=== PATIENT | female | born 1960 | race Caucasian/White ===

== ENCOUNTER → 2019-05-20 | Outpatient (CLI) | payer BC ==
--- NOTE | 2019-05-23 10:14 | PE ---
EXAMINATION TYPE: PET CT fusion skull to thigh DATE OF EXAM: 05/20/2019 CLINICAL HISTORY: 59-year-old female C21.1, initial staging colorectal cancer. Anal cancer. Patient p resented with rectovaginal fistula. Status post biopsy and diverting colostomy on 03/11/2019. TECHNIQUE: Following the intravenous administration of 12.2 mCi of F-18 FDG at the right antecubita l fossa, whole body images are performed from the skull base to the midthigh. Images are reviewed on the computer in the coronal, axial, and sagittal planes. Reconstructed rotating images are created on independent workstation and reviewed on the computer. A localization and attenuation correction CT is performed in conjunction with the PET scan. Glucose level: 94 mg/dL COMPARISON: CT chest 04/08/2019 and abdomen pelvis 12/29/2018 FINDINGS: PET: Physiologic FDG uptake within the neck. Right anterior chest wall injection port is present with internal jugular vein access and a couple ar eas of focal mild uptake along the course of the injection port catheter, likely postsurgical/reactiv e changes. 2.1 cm nodular cutaneous lesion left paramedian anterior upper chest shows intense focal uptake, max SUV 6.1. Otherwise, physiologic FDG uptake within the chest. Average liver SUV 2.5. Some mild/moderate focal uptake at the splenic flexure of the colon likely physiologic as there is no CT correlate, max SUV 3.1. There is a left lower quadrant diverting sigmoid colostomy. The colon located within the subcutaneous adipose layer just deep to the colostomy site shows intense focal uptake, max SUV 8.4. Additional focal intense uptake at the level of the anus, max SUV 13.9. Otherwise, physiologic FDG uptake within the abdomen and pelvis. ATTENUATION CORRECTION CT: Lobulated mucosal thickening floor of the right greater than left maxillary sinuses. Prior resection changes along the right mastoid process. Fatty atrophy of the right submandibular gland. No cervical lymphadenopathy. Heart upper limits of normal in size with trace anterior basilar pericardial fluid. Upper descending thoracic aorta is ectatic at 3.3 cm. Bovine configuration to the aortic arch. No thoracic lymphadenop athy by CT size criteria. No consolidation or pleural effusion. Inferior splenule. Tiny hiatal hernia. No dilated small bowel, free fluid, or free air. No mesenteric or retroperitoneal lymphadenopathy. No significant stool burden. No pericolonic inflammatory change. Normal appendix. Uterus surgically absent. No abnormal fluid collection in the pelvis or pelvic lymphadenopathy. Bones: Mild degenerative changes at the hips. Scattered degenerative disc disease throughout the lowe r thoracic and lumbar spine. No osseous destructive process. IMPRESSION: 1. Intense focal uptake at the level of the anus, max SUV 13.9 may correspond to the site of patient' s vaginal fistula. Correlate for underlying neoplasm here. 2. Left lower quadrant proximal sigmoid diverting colostomy. The colon located within the subcutaneou s adipose just deep to the colostomy opening shows intense focal uptake, maximum SUV 8.4. This could represent nonspecific inflammation but should be correlated as to the location of the patient's biops y-proven carcinoma to exclude neoplasm here. 3. Intense uptake involving a 2.1 cm cutaneous lesion along the left anterior upper chest. Direct vis ualization and evaluation is recommended. Infected/inflamed sebaceous cyst as well as a cutaneous carolyn plasm are both differential considerations.
== END | disposition home or self-care (01) ==
LOC: RADPETMAIN 07:41
PROVIDERS: ATTEND Internal Medicine Hematology & Oncology
DX: Z93.3 Colostomy status (principal); L72.3 Sebaceous cyst; C21.1 Malignant neoplasm of anal canal
CPT/HCPCS: 78815; A9552

== ENCOUNTER → 2019-08-27 | Outpatient (CLI) | payer BC ==
--- NOTE | 2019-08-28 23:41 | CT ---
EXAMINATION TYPE: CT ChestAbdPelvis w con DATE OF EXAM: 08/27/2019 COMPARISON: PET/CT 05/20/2019 HISTORY: 59-year-old female follow up anal cancer TECHNIQUE: Contiguous axial scanning of the chest, abdomen, and pelvis performed with IV Contrast, pa tient injected with 100 mL of Isovue 300. Delayed images through the kidneys were obtained. Coronal/s agittal reconstructions performed. CT DLP: 1113.5 mGycm Automated exposure control for dose reduction was used. FINDINGS: CHEST: Nonspecific 9 mm hypodense nodule left lobe of the thyroid gland. This region did not show any hyperm etabolism on the recent PET/CT. Right anterior chest wall injection port with catheter tip at the right atrium. Heart normal size with small pericardial effusion measuring up to 7 mm thick at that base of the hear t. Aorta normal caliber colon configuration to the aortic arch. No thoracic lymphadenopathy by CT size criteria. Minimal residual cutaneous thickening measuring 6 mm along the left paramedian anterior upper chest a t the site of previous hypermetabolic nodule. Clinical correlation recommended. Some strandy atelectasis in the lower lungs. No consolidation or pleural effusion. Trace left effusio n and some atelectasis is noted. ABDOMEN: Small hiatal hernia. No focal liver lesion or biliary ductal dilatation. Portal venous system is patent. Adrenal glands, kidneys, spleen with tiny posterior splenule, pancreas appear within normal limits. No dilated small bowel, free fluid, or free air. Some nonspecific thickening overlying the right common iliac bifurcation, axial image 92 is of unclea r etiology but was present on the prior 05/20/2019 PET/CT without any hypermetabolism suggesting a peterson ign etiology. No mesenteric or retroperitoneal lymphadenopathy is identified. Diverting left lower quadrant proximal sigmoid colostomy redemonstrated. There is increasing soft tissue stranding and probable edema deep to the stoma within the subcutaneou s adipose of unclear etiology. Refer to axial image 90. No significant stool burden. Normal appendix. PELVIS: New presacral edema. Anasarca type change along the mid to lower abdomen and pelvis. Mild circumferen tial bladder wall thickening with nondependent intraluminal bladder air. Uterus surgically absent. Ne ither ovary clearly seen. No pelvic lymphadenopathy. BONES: Degenerative disc disease L5-S1. Facet arthropathy lower lumbar spine. No osseous destructive process . IMPRESSION: 1. THE PREVIOUS HYPERMETABOLIC CUTANEOUS LESION ALONG THE LEFT PARAMEDIAN ANTERIOR UPPER CHEST SHOWS ONLY MINIMAL 6 MM OF RESIDUAL THICKENING NOW. CLINICALLY CORRELATE FOR ANY INTERVAL TREATMENT/INTERVE NTION. 2. REDEMONSTRATED DIVERTING LEFT LOWER QUADRANT SIGMOID COLOSTOMY. THERE IS INCREASING SOFT TISSUE DE NSITY, STRANDING, AND EDEMA WITHIN AND ALONG THE INFERIOR ASPECT OF THE PULL-THROUGH. CORRELATE FOR A [place] INFECTIOUS OR INFLAMMATORY SIGNS/SYMPTOMS. CONTINUED FOLLOW-UP RECOMMENDED TO EXCLUDE INFILTRATING NEOPLASM, AXIAL IMAGE 90. THIS IS CONSIDERED LESS LIKELY. 3. NEW PRESACRAL EDEMA COULD RELATE TO THE MILD GENERALIZED ANASARCA CHANGE OR POSTTREATMENT CHANGE. THERE IS ALSO A NEW TRACE LEFT EFFUSION. 4. NO NEW METASTATIC DISEASE IDENTIFIED. 5. NONDEPENDENT AIR WITHIN THE BLADDER LUMEN. QUERY ANY RECENT INSTRUMENTATION.
== END | disposition home or self-care (01) ==
LOC: RADCTMAIN 13:31
PROVIDERS: ATTEND Internal Medicine Hematology & Oncology
DX: R22.2 Localized swelling, mass and lump, trunk (principal); M79.89 Other specified soft tissue disorders; Z93.3 Colostomy status; C21.1 Malignant neoplasm of anal canal
CPT/HCPCS: 71260; 74177; Q9967

== ENCOUNTER → 2019-11-24 | Outpatient (CLI) | payer BC ==
--- NOTE | 2019-11-24 15:53 | CT ---
EXAMINATION TYPE: CT ChestAbdPelvis w con DATE OF EXAM: 11/24/2019 COMPARISON: 08/27/2019 and 05/20/2019 HISTORY: 59-year-old female Anal cancer, suspect mets TECHNIQUE: Contiguous axial scanning of the chest, abdomen, and pelvis performed with IV Contrast, pa tient injected with 100 mL of Isovue 300. Delayed images through the kidneys were obtained. Coronal/s agittal reconstructions performed. CT DLP: 1172.5 mGycm Automated exposure control for dose reduction was used. FINDINGS: CHEST: Heart is upper limits of normal in size with new small basilar pericardial effusion. Bovine configuration to the aortic arch. Ectatic upper descending thoracic aorta measuring up to 3.3 cm. Right anterior chest wall injection port with catheter tip at the upper atrium. No thoracic lymphadenopathy by CT size criteria. Increasing small left pleural effusion. Strandy left basilar atelectasis. Minimal biapical pleural pa renchymal scarring. No consolidation. ABDOMEN: No focal liver lesion or biliary ductal dilatation. Portal venous system is patent. Gallbladder, adrenal glands,, right kidney, spleen with a inferior splenule, and pancreas appear with in normal limits. Mild left-sided pelviectasis but no obstructing calculus or calyceal dilatation to suggest troy hydr onephrosis. No dilated small bowel or free air. No mesenteric or retroperitoneal lymphadenopathy. New mild pelvic ascites tracking down into the adnexa and increased presacral edema. Worsening anasar ca change. Redemonstrated proximal sigmoid the diverting colostomy at the left lower quadrant. Resolution of the previous inflammatory changes along the inferior aspect of the pull-through. Normal appendix. PELVIS: The previous intraluminal air within the bladder has resolved. Uterus surgically absent. Neither ovar y clearly visualized. Again, mild ascites tracking into the pelvis and increasing presacral edema and anasarca change. No pelvic lymphadenopathy seen. BONES: Mild degenerative change at both hips. Facet arthropathy lower lumbar spine. Mild to moderate degener ative disc disease midthoracic spine. No osseous destructive process seen. IMPRESSION: 1. WORSENING THIRD SPACING/ANASARCA WITH INCREASING SMALL LEFT EFFUSION, NEW MILD PELVIC ASCITES, AND INCREASING PRESACRAL EDEMA. 2. DIVERTING LEFT LOWER QUADRANT SIGMOID COLOSTOMY WITH RESOLUTION OF THE PREVIOUSLY SEEN INFLAMMATIO N. 3. NO METASTATIC DISEASE IS IDENTIFIED..
== END | disposition home or self-care (01) ==
LOC: RADCTMAIN 12:33
PROVIDERS: ATTEND Internal Medicine Hematology & Oncology
DX: Z03.89 Encounter for observation for other suspected diseases and conditions ruled out (principal); C21.1 Malignant neoplasm of anal canal; K94.09 Other complications of colostomy; R18.8 Other ascites
CPT/HCPCS: 71260; 74177; Q9967

== ENCOUNTER → 2020-02-23 | Outpatient (CLI) | payer BC ==
--- NOTE | 2020-02-24 08:29 | CT ---
EXAMINATION TYPE: CT ChestAbdPelvis w con DATE OF EXAM: 02/23/2020 COMPARISON: Most recent CT November 24, 2019 and older CTs. PET/CT May 20, 2019 HISTORY: Anal CA f/u CT DLP: 811.3 mGycm. Automated Exposure Control for Dose Reduction was Utilized. CONTRAST: CT scan of the thorax, abdomen and pelvis is performed with oral and with IV Contrast, patient inject ed with 100 mL of Isovue 300. FINDINGS: LUNGS: The lungs remain grossly clear, there is no concerning parenchymal mass or nodule identified. There is no pleural effusion or pneumothorax seen currently. The tracheobronchial tree is patent. MEDIASTINUM: There are no greater than 1 cm hilar or mediastinal lymph nodes. No cardiomegaly or pe ricardial effusion is seen. OTHER: Stable right internal jugular Mediport catheter. Tiny focal skin lesion medial left breast axi al image 26 corresponding to area of hypermetabolic uptake PET/CT is slightly more prominent from rec ent CT, similar in appearance to the April 08, 2019 CT. LIVER/GB: No significant abnormality is appreciated. PANCREAS: No significant abnormality is seen. SPLEEN: Small splenule inferior posterior to spleen coronal image 64 redemonstrated. ADRENALS: No significant abnormality is seen. KIDNEYS: Extrarenal pelvis on left redemonstrated. No calyceal dilatation. Symmetric cortical medulla ry uptake and excretion again seen. BOWEL: Oral contrast does not reach level of left-sided ostomy. No suspicious small or large bowel di latation. Distal sigmoid rectal stump redemonstrated terminating with sutures in the left sided ostom y. Stable increased soft tissue in the presacral space axial image 105 unchanged from most recent casandra dy. No new suspicious asymmetric tissue or nodularity at this level. GENITAL ORGANS: Uterus surgically absent or markedly atrophic. Scattered right-sided pelvic phlebolit hs. Foci of air in the remnant cervix axial image 120 redemonstrated. LYMPH NODES: No greater than 1cm abdominal or pelvic lymph nodes are appreciated. OSSEOUS STRUCTURES: Slight scoliotic curvature with moderate multilevel spurring. Multilevel facet ar thropathy lower lumbar spine. OTHER: No significant additional abnormality is seen. IMPRESSION: Subcentimeter soft tissue lesion anterior left mid breast or thorax is more prominent fro m recent CT and should be correlated clinically after hypermetabolic uptake on PET/CT, appears simila r to the CT chest April 08, 2019 study. Otherwise no new mass or adenopathy identified to suggest metastatic neoplasm or neoplastic progression. Stable findings in the anal and presacral region from most recent CT.
== END | disposition home or self-care (01) ==
LOC: RADCTMAIN 13:48
PROVIDERS: ATTEND Internal Medicine Hematology & Oncology
DX: M79.89 Other specified soft tissue disorders (principal); C21.1 Malignant neoplasm of anal canal
CPT/HCPCS: 71260; 74177; Q9967

== ENCOUNTER → 2020-06-13 | Outpatient (CLI) | payer BC ==
--- NOTE | 2020-06-13 14:37 | CT ---
EXAMINATION TYPE: CT ChestAbdPelvis w con DATE OF EXAM: 06/13/2020 COMPARISON: CT February 23, 2020 and older studies HISTORY: H/O anal CA CT DLP: 929.9 mGycm. Automated Exposure Control for Dose Reduction was Utilized. CONTRAST: CT scan of the thorax, abdomen and pelvis is performed with oral and with IV Contrast, patient inject ed with 100ml mL of Isovue 300. FINDINGS: LUNGS: The lungs remain grossly clear, there is no concerning new or enlarging greater than 4 mm pare nchymal mass or nodule identified. Stable micronodule anterior right upper lobe axial image 25. Ther e is no pleural effusion or pneumothorax seen currently. The tracheobronchial tree is patent. MEDIASTINUM: There are no new greater than 1 cm hilar or mediastinal lymph nodes. No cardiomegaly o r pericardial effusion is seen. OTHER: Interval removal of right sided Mediport catheter. Tiny focal skin lesion medial left breast p rior study not clearly seen on current study. Stable near 1 cm lower pole left thyroid nodule image 3 0. LIVER/GB: No significant abnormality is appreciated. PANCREAS: No significant abnormality is seen. SPLEEN: Small splenule inferior posterior to spleen coronal image 64 is redemonstrated. ADRENALS: No significant abnormality is seen. KIDNEYS: Extrarenal pelvis on left redemonstrated. No calyceal dilatation. Symmetric cortical medulla ry uptake and excretion again seen. BOWEL: Interval ostomy reversal. Oral contrast does not reach level of colon on current study. Surgic al sutures colonic loop in the central upper pelvis coronal image 33 current study. Mild focal fecal prominence at this level. There is additional metallic density anterior right upper pelvis image 93 c urrent study presumed surgical clip. No suspicious small or large bowel dilatation overall. Mild to m oderate wall thickening in the sigmoid rectal colon with mild adjacent fat stranding. Stable mild inc reased soft tissue in the presacral space axial image 105 for reference unchanged from most recent st udy. No new suspicious asymmetric tissue or nodularity at this level. GENITAL ORGANS: Uterus surgically absent . A few right-sided pelvic phleboliths. LYMPH NODES: No new greater than 1cm abdominal or pelvic lymph nodes are appreciated. Prominent but s ubcentimeter lymph node right lower quadrant axial image 89 suspected, in close proximity to bowel lo op just below this. Short-term follow-up at this level advised. OSSEOUS STRUCTURES: Slight scoliotic curvature with moderate multilevel spurring. Multilevel facet ar thropathy lower lumbar spine. OTHER: Moderate mixed plaque in the aorta extends into branch vessels. IMPRESSION: Interval colostomy reversal. Stable findings in the anal and presacral region from most r ecent CT suggests posttreatment change. Possible new mild distal uncomplicated acute colitis, correla te clinically. No definitive new mass or adenopathy to suggest recurrent or persistent metastatic carolyn plasm.
== END | disposition home or self-care (01) ==
LOC: RADCTMAIN 12:06
PROVIDERS: ATTEND Internal Medicine Hematology & Oncology
DX: C21.1 Malignant neoplasm of anal canal (principal)
CPT/HCPCS: 71260; 74177; Q9967

== ENCOUNTER → 2020-09-13 | Outpatient (CLI) | payer BC ==
--- NOTE | 2020-09-14 17:01 | CT ---
EXAMINATION TYPE: CT ChestAbdPelvis wo/w con DATE OF EXAM: 09/13/2020 INDICATION: Follow up anal cancer COMPARISON: 06/13/2020 CT DLP: 1759.1 mGycm CONTRAST: Performed with Oral Contrast and without and with IV Contrast, patient injected with 100 mL of Isovue 300. TECHNIQUE: Axial images at 5 mm thick sections. Reconstructed images in the coronal plane. Delayed images through the kidneys. FINDINGS: CT CHEST: Small cystlike areas within the anterior left thyroid lobe. No suspicious lung nodules or focal infiltrates are present. No enlarged mediastinal or hilar adenopathy is evident. The ascending aorta diameter at the level of the main pulmonary artery is 3.6 cm. The main pulmonary artery diameter at the bifurcation is 2.8 cm. Minimal coronary artery calcification is present. Very minimal pericardial effusion may be present. CT ABDOMEN: Liver: Normal Spleen: Normal Pancreas: Normal Adrenal glands: The adrenal glands are normal. Gallbladder: Normal Kidneys: No masses are evident. No hydronephrosis is present. No cysts are present. No renal stone s are evident. Aorta: Vascular calcification is within the aorta. Inferior vena cava: Normal. CT PELVIS: Presacral space is normal. Perirectal fat appears normal. Loops of bowel within the abdomen and pelvis are normal. Postsurgical changes are evident within the pelvis. There are loops of bowel which are incompletely distended or lack oral contrast limiting t heir evaluation. Appendix: Normal as visualized. Urinary bladder: Normal. Genitourinary structures: Uterus and ovaries are not identified. Osseous structures: No suspicious lytic or sclerotic lesions. IMPRESSIONS: 1. Postsurgical changes. 2. No suspicious change to suggest recurrent or metastatic neoplasm.
== END | disposition home or self-care (01) ==
LOC: RADCTMAIN 10:15
PROVIDERS: ATTEND Internal Medicine Hematology & Oncology
DX: C21.1 Malignant neoplasm of anal canal (principal); K60.3 Anal fistula; I10 Essential (primary) hypertension; Z71.3 Dietary counseling and surveillance
CPT/HCPCS: 71270; 74178; Q9967

== ENCOUNTER → 2020-12-07 | Outpatient (CLI) | payer BC ==
--- NOTE | 2020-12-09 16:24 | CT ---
EXAMINATION TYPE: CT ChestAbdPelvis w con DATE OF EXAM: 12/07/2020 COMPARISON: 09/13/2020, 06/13/2020, 02/23/2020 HISTORY: 60-year-old female C21.1 Malignant neoplasm of anus TECHNIQUE: Contiguous axial scanning of the chest, abdomen, and pelvis performed with IV Contrast, pa tient injected with 100 mL of Isovue 300. Delayed images through the kidneys were obtained. Coronal/s agittal reconstructions performed. CT DLP: 1519 mGycm Automated exposure control for dose reduction was used. FINDINGS: CHEST: Heart normal size with trace pericardial fluid. There is bovine configuration to the aortic arch. Upper descending thoracic aorta remains ectatic at 3.1 cm. 7 mm hypodense nodule left lobe of the thyroid gland remains unchanged. No thoracic lymphadenopathy by CT size criteria. Minimal biapical pleural-parenchymal scarring. No consolidation or pleural effusion. ABDOMEN: Tiny 4 mm hypodensity anterior right liver lobe too small for accurate CT characterization, unchanged , likely tiny cyst. No biliary ductal dilatation. Portal venous system is patent. Gallbladder, adrenal glands, spleen with posterior inferior splenule, and pancreas within normal limi ts. Bilateral extrarenal pelves redemonstrated. Stranding and scarring along the anterior left lower quadrant subcutaneous adipose layer relating to prior colostomy. No dilated small bowel, free fluid, or free air. No mesenteric or retroperitoneal lymphadenopathy. Normal appendix. Oral contrast has progressed into the left upper quadrant. Postsurgical change of partial left hemico lectomy. The left side of the colon is again noted to have been brought towards the midline. At the l evel of the anastomosis in the anterior midline upper pelvis, the colon is patulous measuring up to 6 .0 cm, similar to prior exam. We do note some focal soft tissue thickening which appears increased, extending posteriorly from here measuring 3.4 x 1.5 cm. Reference axial image 93. We suspect this to represent combination of a post menopausal ovary and possibly some adjacent scar tissue. Attention on follow-up. PELVIS: Bladder is urine distended. Mild circumferential bladder wall thickening. Uterus surgically absent. P resacral edema/soft tissue thickening appears similar. Otherwise, no pelvic lymphadenopathy seen. BONES: Sclerosis of the sacrum may be slightly increased. Vertically oriented lucency along the left side of the sacrum, axial image 90 through 97. Mild anterior endplate spondylosis lower thoracic spine and l umbar spine. IMPRESSION: 1. REDEMONSTRATED PRIOR PARTIAL LEFT HEMICOLECTOMY AND COLOSTOMY REVERSAL. AT THE LEVEL OF THE ANASTO MOSIS, THERE IS SOME 3.4 X 1.5 CM SOFT TISSUE THICKENING EXTENDING POSTERIORLY FROM THE RIGHT LATERAL MARGIN THAT APPEARS INCREASED. SUSPECT THE SOFT TISSUE TO REPRESENT A COMBINATION OF A POSTMENOPAUSA L OVARY AND POSSIBLY SOME ADJACENT SCAR TISSUE. ATTENTION ON FOLLOW-UP TO EXCLUDE THE POSSIBILITY OF RECURRENCE. 2. OTHERWISE, NO EVIDENCE FOR METASTATIC DISEASE. 3. MILD CIRCUMFERENTIAL BLADDER WALL THICKENING COULD REPRESENT CYSTITIS OR POSTTREATMENT CHANGE. SIM ILARLY, PRESACRAL SOFT TISSUE THICKENING/EDEMA IS ALSO UNCHANGED. 4. SACRAL SCLEROSIS SLIGHTLY INCREASED, CORRELATE FOR PRIOR RADIATION THERAPY CHANGE. THERE APPEARS T O BE INTERVAL DEVELOPMENT OF A VERTICAL LEFT SACRAL ALAR INSUFFICIENCY FRACTURE.
== END | disposition home or self-care (01) ==
LOC: RADCTMAIN 11:06
PROVIDERS: ATTEND Internal Medicine Hematology & Oncology
DX: C21.1 Malignant neoplasm of anal canal (principal); K60.3 Anal fistula; I10 Essential (primary) hypertension; Z71.3 Dietary counseling and surveillance
CPT/HCPCS: 71260; 74177; Q9967

== ENCOUNTER 2023-09-26 10:26 | Inpatient (IN) | payer MEDICARE ==
[~2023-09-26 10:26] MED LIST: ASPIRIN 325 MG TAB ONE; DILTIAZEM 125 MG/25 ML VIAL IV ONE; DILTIAZEM 5 MG/ML 5 ML VIAL ONE; SODIUM CHLORIDE 0.9% 1,000 ML BAG ONE; SODIUM CHLORIDE 0.9% 100 ML BAG IV ONE; SODIUM CHLORIDE 0.9% 500 ML BAG ONE; TICAGRELOR 90 MG TAB ONE
[2023-09-26] MEDS ORDERED: ATORVASTATIN 80 MG TAB ONE (21:08)
[2023-09-26] MEDS ORDERED: SODIUM CHLORIDE 0.9% 100 ML BAG IV ONE (23:59)
[2023-09-26] MEDS ORDERED: SODIUM CHLORIDE 0.9% 1,000 ML BAG ONE (23:59)
[2023-09-26] MEDS ORDERED: DILTIAZEM 100 MG VIAL.PORT IV ONE (23:59)
[2023-09-27] MEDS ORDERED: ATORVASTATIN 80 MG TAB ONE (08:55)
[2023-09-27] MEDS ORDERED: ASPIRIN 81 MG ONE (08:55)
[2023-09-27] MEDS ORDERED: FAMOTIDINE 20 MG TAB ONE (08:55)
[2023-09-27] MEDS ORDERED: TICAGRELOR 90 MG TAB ONE (08:56)
[2023-09-27] MEDS ORDERED: DILTIAZEM ORAL 30 MG TAB ONE (16:49)
[2023-09-28] MEDS ORDERED: ASPIRIN 81 MG ONE (09:16)
[2023-09-28] MEDS ORDERED: TICAGRELOR 90 MG TAB ONE ×2 (09:17→20:43)
[2023-09-28] MEDS ORDERED: FAMOTIDINE 20 MG TAB ONE ×2 (09:17→20:42)
[2023-09-28] MEDS ORDERED: APIXABAN 5 MG TAB ONE ×2 (09:17→20:42)
[2023-09-28] MEDS ORDERED: METOPROLOL TARTRATE 50 MG TAB ONE ×2 (13:49→20:42)
[2023-09-28] MEDS ORDERED: DILTIAZEM ORAL 60 MG TAB ONE ×2 (14:34→20:42)
[2023-09-28] MEDS ORDERED: ATORVASTATIN 80 MG TAB ONE (20:42)
[2023-09-29] MEDS ORDERED: DILTIAZEM ORAL 60 MG TAB ONE ×3 (06:14→19:48)
[2023-09-29] MEDS ORDERED: METOPROLOL TARTRATE 50 MG TAB ONE (09:46)
[2023-09-29] MEDS ORDERED: APIXABAN 5 MG TAB ONE ×2 (09:46→19:48)
[2023-09-29] MEDS ORDERED: FAMOTIDINE 20 MG TAB ONE ×2 (09:46→19:48)
[2023-09-29] MEDS ORDERED: ASPIRIN 81 MG ONE (09:46)
[2023-09-29] MEDS ORDERED: TICAGRELOR 90 MG TAB ONE ×2 (09:46→19:49)
[2023-09-29] MEDS ORDERED: METOPROLOL TARTRATE 12.5 MG TAB ONE (19:48)
[2023-09-29] MEDS ORDERED: ATORVASTATIN 80 MG TAB ONE (19:48)
[2023-09-30] MEDS ORDERED: DILTIAZEM ORAL 60 MG TAB ONE ×2 (05:50→13:06)
[2023-09-30] MEDS ORDERED: FAMOTIDINE 20 MG TAB ONE (09:07)
[2023-09-30] MEDS ORDERED: ASPIRIN 81 MG ONE (09:07)
[2023-09-30] MEDS ORDERED: APIXABAN 5 MG TAB ONE (09:08)
[2023-09-30] MEDS ORDERED: METOPROLOL TARTRATE 12.5 MG TAB ONE (09:08)
[2023-09-30] MEDS ORDERED: TICAGRELOR 90 MG TAB ONE (09:08)
--- NOTE | 2023-10-19 17:11 | CT ---
Patient Nannette Wolfe ID [id number] Order # EXAMINATION TYPE: CT brain wo con for TPA DATE OF EXAM: 09/26/2023 COMPARISON: No comparison available on downtime PACS. INDICATION: Aphasic DLP: 1603.6 mGycm, Automated exposure control for dose reduction was used. CONTRAST: 65 mL Isovue-370 CT of the brain is performed utilizing 3 mm thick sections through the posterior fossa and 3 mm thick sections through the remaining calvarium. Study is performed within 24 hours of arrival to the hosp [facility]. No abnormal hyperdensity is present to suggest an acute intracranial hemorrhage. No mass lesion is evident. No acute infarcts are evident. Ventricles and sulci are appropriate for the patient age. Paranasal sinuses and mastoid air cells within the [id number] are clear. IMPRESSION: 1. No acute intracranial process. Follow up MRI can be performed as clinically indicated. EXAMINATION TYPE: CT brain wo con for TPA DATE OF EXAM: 09/26/2023 HISTORY: Aphasic COMPARISON: No comparison available on downtime PACS. CT DLP: 1603.6 mGycm. Automated Exposure Control for Dose Reduction was Utilized. TECHNIQUE: CTA scan of the neck is performed with IV Contrast, patient injected with 65 mL of Isovue 370, axial images are obtained, coronal and sagittal reformatted images are reviewed. Three-D recons tructed images are created on an independent workstation and reviewed. Source images are reviewed. FINDINGS: Carotid/Vascular Structures: There is a 3 vessel arch. May be a common origin of the left common wise tid artery right subclavian. Common carotid arteries bifurcate into internal and external carotid arteries without significant valeria w limiting stenosis. Vertebral arteries are codominant. Internal carotid arteries and vertebral arteries are patent to the skull base. Cervical of [place]: Vertebral basilar system appears normal. Posterior cerebral vasculature is unrema rkable. Internal carotid arteries bifurcate normally into A1 and M1 segments. A2 segments are normal. The anterior communicating artery is patent. The right posterior communicating artery is patent. The left posterior communicating artery is patent. IMPRESSION: 1. No flow-limiting stenosis bilateral carotid bifurcations. 2. Normal [place] NASCET criteria was used in interpretation of this exam?
--- NOTE | 2023-10-20 11:12 | MR ---
Patient: Nannette Wolfe Ordering Physician: Unknown, Unknown ID: [id number] Phone, Pager: Tami ne: N/A Pager: N/A : 1960 Age/Gender: 63Y, F Primary Location: N/A Procedure: MR brain wo/w c on Study Date: 09/28/2023 2:34:51 PM EXAMINATION TYPE: MR brain wo con DATE OF EXAM: 09/28/2023 4:36 PM CLINICAL INDICATION: Confusion COMPARISON: 09/26/2023. TECHNIQUE: Multi planar, multi sequence imaging was performed through the brain including: T1, T2, In version recovery, susceptibility weighted imaging and gradient echo imaging and Diffusion weighted im aging. The patient was then given intravenous contrast and multi planar, T1 fat-saturation images wer e obtained. IV Contrast: None FINDINGS: Restricted diffusion within the left temporal and left parietal lobes compatible with acute /subacute CVA. The may-white junctions, ventricular system, basal cisterns appear unremarkable. Diffusion-weighted imaging shows no evidence of restricted diffusion to suggest acute/subacute infarct. Intracranial ar terial flow voids are maintained. Midline structures show no abnormality. Scattered foci of high T2 s ignal intensity are seen within the periventricular white matter. The susceptibility weighted images do not reveal any evidence for micro-hemorrhage. The bone marrow signal is within normal limits. Paranasal sinuses and mastoid air cells: No significant paranasal sinus disease. Visualized orbits: Orbital contents are intact. IMPRESSION: 1. Left temporal/parietal lobe acute/subacute CVA. 2. Nonspecific white matter changes, likely related to small vessel ischemic disease.
--- NOTE | 2023-10-27 11:08 | CA ---
Transthoracic Echo Report Name: Nannette Wolfe Age: 63 Gender: F : 1960 Exam Date: 09/29/2023 08:08 Exam Location: [facility] Ht (in): 64 Wt (lb): 195 Ordering Physician: Attending/Referring Phys: Pharmacy Order Entry Technician Renetta Hollins RDCS Procedure CPT: Indications: Cardiac Hx: Technical Quality: Good Contrast 1: Total Dose (mL): Contrast 2: Total Dose (mL): MEASUREMENTS (Male / Female) Normal Values 2D ECHO LV Diastolic Diameter PLAX 5.3 cm 4.2 - 5.9 / 3.9 - 5.3 cm LV Systolic Diameter PLAX 3.2 cm IVS Diastolic Thickness 1.0 cm 0.6 - 1.0 / 0.6 - 0.9 cm LVPW Diastolic Thickness 1.1 cm 0.6 - 1.0 / 0.6 - 0.9 cm LV Relative Wall Thickness 0.4 RV Internal Dim ED PLAX 3.1 cm LA Systolic Diameter LX 4.4 cm 3.0 - 4.0 / 2.7 - 3.8 cm LV Diastolic Volume MOD 4C 78.4 cm??? LV Systolic Volume MOD 4C 48.2 cm??? LV Ejection Fraction MOD 4C 38.4 % LV Cardiac Index MOD 4C 1185.2 cm???/min???m??? LV Diastolic Length 4C 7.3 cm LV Systolic Length 4C 6.6 cm LV Diastolic Volume MOD 2C 84.4 cm??? LV Systolic Volume MOD 2C 41.7 cm??? LV Ejection Fraction MOD 2C 50.6 % LV Cardiac Index MOD 2C 1679.3 cm???/min???m??? LV Diastolic Length 2C 6.6 cm LV Systolic Length 2C 5.5 cm M-MODE Aortic Root Diameter MM 2.8 cm AV Cusp Separation MM 1.9 cm DOPPLER AV Peak Velocity 125.9 cm/s AV Peak Gradient 6.3 mmHg MV Area PHT 4.6 cm??? TR Peak Velocity 214.7 cm/s TR Peak Gradient 18.4 mmHg Right Ventricular Systolic Press 29.2 mmHg FINDINGS Left Ventricle Left ventricular ejection fraction is estimated at 40-45 %. Left ventricular cavity size normal. Moderate global hypokinesis Right Ventricle Normal right ventricular size and function. Right ventricular systolic pressure within normal limits. Right Atrium Normal right atrial size. No right atrial thrombus or mass seen. Left Atrium Moderately increased left atrial diameter. No left atrial thrombus or mass present. Mitral Valve Structurally normal mitral valve. Moderate mitral regurgitation. Aortic Valve Trileaflet aortic valve. No aortic valve stenosis or regurgitation. Tricuspid Valve Structurally normal tricuspid valve. Moderate severe tricuspid regurgitation. Pulmonic Valve Structurally normal pulmonic valve. Mild pulmonic regurgitation. Pericardium No pericardial or pleural effusion. Aorta Normal size aortic root and proximal ascending aorta. CONCLUSIONS 1. Moderate global hypokinesis of the left ventricle 2. Moderate mitral regurgitation 3. Moderate tricuspid regurgitation with no evidence of pulmonary hypertension Previewed by: Dr. Tiarra Cleaning MD (Electronically Signed) Final Date: 29 September 2023 09:32
--- NOTE | 2023-10-28 06:18 | XR ---
Patient Nannette Wolfe ID [id number] Order # EXAMINATION TYPE: XR chest 2V DATE OF EXAM: 09/26/2023 COMPARISON: No comparison available on downtime PACS. INDICATION: Dysphagia, acute mental status change TECHNIQUE: Frontal and lateral views of the chest are obtained. FINDINGS: The heart size is normal. The pulmonary vasculature is normal. The lungs are clear. IMPRESSION: 1. No acute pulmonary process.
== END 2023-09-30 16:51 | disposition home or self-care (01) | DRG 308 ==
LOC: DISRECOVER 10:26
PROVIDERS: ADMIT Hospitalist; ATTEND Hospitalist
DX: I48.0 Paroxysmal atrial fibrillation (principal); I63.89 Other cerebral infarction; R47.01 Aphasia; I34.2 Nonrheumatic mitral (valve) stenosis; F10.90 Alcohol use, unspecified, uncomplicated; H91.91 Unspecified hearing loss, right ear; R29.701 NIHSS score 1; Y90.0 Blood alcohol level of less than 20 mg/100 ml; Z85.9 Personal history of malignant neoplasm, unspecified
CPT/HCPCS: 70450; 70496; 70498; 70551; 71046; 80061; 93005; 93306; 96361; 96374; 99291

== ENCOUNTER 2023-11-17 08:50 | Day surgery (SDC) | payer MEDICARE ==
[~2023-11-17 08:50] MED LIST changes: -ASPIRIN 325 MG TAB ONE; -DILTIAZEM 125 MG/25 ML VIAL IV ONE; -DILTIAZEM 5 MG/ML 5 ML VIAL ONE; -SODIUM CHLORIDE 0.9% 1,000 ML BAG ONE; +SODIUM CHLORIDE 0.9% 1,000 ML IV SCH; -SODIUM CHLORIDE 0.9% 100 ML BAG IV ONE; -SODIUM CHLORIDE 0.9% 500 ML BAG ONE; -TICAGRELOR 90 MG TAB ONE
[2023-11-17] MEDS: IV FLUID CONTINUATION 1,000 ML IV ONE (09:35)
[2023-11-17] MEDS: SODIUM CHLORIDE 0.9% 500 ML DEHP FREE BAG IV STA (09:39)
[2023-11-17 10:00] LABS: ALT 24 U/L (4-34); AST 26 U/L (14-36); African American GFR (CKD) 84 (>60 ml/min/1.73 sqM); Albumin 4.5 g/dL (3.5-5.0); Alkaline Phosphatase 72 U/L (38-126); Anion Gap 9 mmol/L; Blood Urea Nitrogen 15 mg/dL (7-17); Calcium 9.9 mg/dL (8.4-10.2); Carbon Dioxide 25 mmol/L (22-30); Chloride 107 mmol/L (98-107); Glucose 116 mg/dL (74-99); HCT 35.1 % (34.0-46.0); MCH 34.7 pg (25.0-35.0); MCHC 34.1 g/dL (31.0-37.0); MCV 101.6 fL (80.0-100.0); Mean Platelet Volume 7.9; Non-African American GFR(CKD) 72 (>60 ml/min/1.73 sqM); Platelet Count 249 k/uL (150-450); Potassium 4.4 mmol/L (3.5-5.1); RBC 3.45 m/uL (3.80-5.40); RDW 12.4 % (11.5-15.5); Sodium 141 mmol/L (137-145); Total Bilirubin 1.3 mg/dL (0.2-1.3); Total Protein 6.8 g/dL (6.3-8.2); WBC 4.4 k/uL (3.8-10.6)
[2023-11-17] MEDS ORDERED: PROPOFOL 10 MG/ML 20 ML VIAL IV ONE (10:05)
[2023-11-17] MEDS ORDERED: ePHEDrine 50 MG/ML 1 ML VIAL ONE (10:05)
[2023-11-17] MEDS ORDERED: LIDOCAINE 1% INJ 10MG/ML (20 ML MDV) ONE (10:05)
[2023-11-17 10:06] LABS: NT-Pro-B-Type Natriuretic Pept 2410 pg/mL
[2023-11-17] MEDS ORDERED: BENZOCAINE SPRAY 1 CAN MUCOUS MEM PRN (10:25)
[2023-11-17 10:30] VITALS: TEMP 97.6
[2023-11-17 11:53] VITALS: RESP 18
[2023-11-17 12:03] VITALS: BP 121/69; PULSE 66
[2023-11-17 16:52] LABS: Chol/HDL Ratio 2.19 Ratio; LDL Cholesterol,Calculated 52.3 mg/dL (0.0-131.0)
--- NOTE | 2023-11-17 17:48 | P.TEE ---
Date of Procedure: 11/17/23 Description of Procedure(s): Procedure performed: 1. Transesophageal Echocardiogram. Pulse-wave Doppler, color Doppler, bubble study 2. Synchronized Cardioversion. Indications: Persistent atrial fibrillation Consent: I have discussed the risks, benefits and alternative therapies for the above-mentioned procedure. The patient has indicated understanding and acceptance of the risks of the procedure. Signed consent was obtained and was placed in the paper chart. Moderate conscious sedation: Moderate conscious sedation was administered by anesthesia, see separate report. Procedural Steps: Timeout was performed in usual fashion. Patient's heart rate, blood pressure, oxygen saturation and ECG were monitored. After achieving appropriate moderate conscious sedation, SUSAN SUSAN probe was advanced without difficulty and without any immediate complications to the esophagus. SUSAN study was performed with color flow doppler, pulsed wave doppler and continuous wave doppler. Agitated saline bubbles were injected to assess for any intra-atrial shunt. The probe was then removed. SYNCHRONIZED CARDIOVERSION After making sure that there is no evidence of intracardiac thrombus, pacer pads were placed and secured on patients chest and back. Synchronized cardioversion was perfromed using [150] J. [1] attempt. Sinus rhythm was confirmed with a 12 lead EKG. Patient tolerated the procedure well. Patient was transferred to the post procedure area in stable and satisfactory condition. Complications: none Blood loss: none FINDINGS Left Atrium: Moderate left atrial dilatation. No thrombus in left atrium. No significant systolic flow reversal in pulmonic vein. Left Atrial Appendage: No evidence of thrombus or mass seen in CHERYL. Good velocities Inter atrial septum: Intact inter-atrial septum. No evidence of atrial septal defect or patent foramen ovale on color doppler. No evidence of intracardiac shunting from right to left on bubble study. Left Ventricle: Normal global LV size and systolic function Right Atrium: Normal overall RA size Right Ventricle: Normal global RV size and systolic function Aortic Valve: Structurally normal Trileaflet, no significant calcification. No significant stenosis or regurgitation on color doppler assessment. Mitral Valve: Struturally normal. Moderate functional mitral regurgitation. Pulmonic Valve: No significant stenosis or regurgitation. Tricuspid Valve: Mild tricuspid regurgitation, RVSP estimated around 15 mmHg. Ascending aorta, Aortic root and Aortic arch: Normal size aortic root and ascending aorta. Ascending aorta measured at 3 point centimeter. Descending aorta: Mild intimal thickening. No evidence of large atheroma or bulky calcification CONCLUSION: No thrombus in the CHERYL or left atrial appendage Moderate left atrial dilatation Moderate functional mitral regurgitation Preserved LV size and systolic function with no significant other valvular abnormality. Successful cardioversion 1 attempt, 150 J. Recommendation Continue Eliquis 5 mg twice daily without any interruptions Discontinue Cardizem. Increase metoprolol to 25 mg twice daily Willam Lemus MD, RPVI, FACC Thank you for allowing [facility] to participate in this patient's care. Feel free to reach out in case of any followup questions.
== END 2023-11-17 13:20 | disposition home or self-care (01) ==
LOC: OR 08:50
PROVIDERS: ATTEND Student in an Organized Health Care Education/Training Program
CPT/HCPCS: 80053; 80061; 83036; 83880; 84443; 85027; 92960; 93312; 93320; 93325